=== PATIENT | male | born 1965 | race Caucasian/White ===

== ENCOUNTER 2019-01-03 14:27 | Emergency (ER) | payer MEDICAID ==
[~2019-01-03] VITALS: Ht 170.2 cm; Wt 68.9 kg
[2019-01-03 14:43] VITALS: Ht 170.2 cm; Wt 68.9 kg
[2019-01-03] MEDS ORDERED: KETOROLAC 30 MG INJ IM STA (16:24)
[2019-01-03] MEDS ORDERED: LIDOCAINE/MYLANTA 40 ML BTL PO STA (16:24)
[2019-01-03] MEDS ORDERED: FAMO-96 PO (16:26)
[2019-01-03] MEDS ORDERED: NAPR-985 PO (16:26)
[2019-01-03] MEDS ORDERED: DEXAMETHASONE 10 MG/ML 1 ML INJ IM ONE (16:30)
--- NOTE | 2019-01-03 16:36 | ERD ---
ER Documentation Chief Complaint Chief Complaint generalized body pains, abdominal gas X 1 day HPI 53-year-old male with no reported past medical history, history of diverticulitis with reported surgery 6 years ago who presents with complaint of back pain as well as abdominal discomfort. Patient describes mid upper back pain radiation of pain to both upper extremities. Pain made worse with movement of torso. States symptoms began abruptly after he woke up this morning. Denies any history of recent fall or injury but states that he does have a job that is rather strenuous. Denies upper or lower extremity weakness or numbness. No reported saddle anesthesia or bowel or urinary incontinence. Regard says of the abdominal discomfort he describes a burning type pain in the upper epigastric chest area. Made worse following meals. Has had intermittent nausea but no reports of vomiting or diarrhea. When asked specifically if he is having abdom inal pain he denies abdominal pain chest reporting abdominal discomfort after meals. He otherwise denies fevers is moving his bowels and passing gas without issue. ROS All systems reviewed and are negative except as per history of present illness. Medications Home Meds Active Scripts Famotidine* (Pepcid*) 20 Mg Tablet, 20 MG PO BID for 30 Days, TAB Prov:EILEEN DALTON-C 01/03/19 Naproxen* (Naprosyn*) 500 Mg Tablet, 500 MG PO BID PRN for PAIN AND/OR INFLAMMATION, #30 TAB Prov:EILEEN DALTON PA-C 01/03/19 Allergies Allergies: Coded Allergies: No Known Allergy (Unverified , 09/25/11) PMhx/Soc History of Surgery: No Anesthesia Reaction: No Hx Neurological Disorder: No Hx Respiratory Disorders: No Hx Cardiac Disorders: Yes (HTN) Hx Psychiatric Problems: No Hx Alcohol Use: No Hx Substance Use: No Hx Tobacco Use: No Smoking Status: Never smoker FmHx Family History: No diabetes, No coronary disease, No other Physical Exam Vitals Vital Signs Date Temp Pulse Resp B/P (MAP) Pulse Ox O2 O2 Flow FiO2 Time Delivery Rate 01/03/19 99.9 88 18 129/79 97 14:43 (96) Physical Exam I have reviewed the triage vital signs. Const: Well nourished, well developed, appears stated age Eyes: PERRL, no conjunctival injection HENT: NCAT, Neck supple without meningismus CV: RRR, Warm, well-perfused extremities RESP: CTAB, Unlabored respiratory effort GI: soft, non-tender, non-distended, no masses MSK: No gross deformities appreciated. no supra/para spinal tenderness, full ROM, 5/5 after upper and lower extremities, SI LT throughout, negative straight leg test Skin: Warm, dry. No rashes Neuro: grossly non focal Psych: Appropriate mood and affect. Results 24 hrs Current Medications Medications Dose Sig/Julee Start Time Status Last (Trade) Ordered Route PRN Stop Time Admin Dose Reason Admin 40 ml ONCE STAT 01/03/19 DC Miscellaneous PO 16:24 Medication 01/03/19 16:25 (Gi Cocktail (2)) Ketorolac 30 mg ONCE STAT 01/03/19 DC Tromethamine IM 16:24 (Toradol) 01/03/19 16:25 10 mg ONCE ONCE 01/03/19 Dexamethasone IM 16:30 (Decadron) 01/03/19 16:31 Procedures/MDM 53-year-old male who presents with complaint of back pain as well as GERD type abdominal discomfort. He is hemodynamically stable with no concerning neurovascular symptoms which warrant further emergent work-up. No red flag symptoms reported. Completely reassuring physical examination. Low suspicion for acute cord compression or cauda equina at this time, given presentation and symptoms, including epidural abscess or hematoma. Patient has no history of malignancy, active or distant history. Patient has no unexplained weight loss. No recent fevers, rigors, malaise, or recent infection. No history of IVDU or skin-popping. Patient does not have any history concerning for saddle anesthe ninoska/perianal sensory loss or complaining of decreased rectal tone. Patient does not have urinary retention or inability to control urine from overflow. Patient has no tenderness overlying spinous process. Patient has no focal weakness on examination. Has complained of the abdominal pain may be secondary to GERD. He has no concerning symptoms which give me concern for acute abdominal pathology warranting further emergent work-up. ED course: Toradol, Decadron Discharge with appropriate pain medications, famotidine Given exam and history, low suspicion for cord compression, cauda equina, epidural abscess/hematoma. Distally neurovascularly intact. Query likely musculoskeletal component. Discussed pain control,and follow up with PMD. Cautious return precautions discussed w/ full understanding DISPOSITION PLAN: We discussed follow up with the patient's primary care doctor within 24 to 48 hours. Patient counseled regarding my diagnostic impression and care plan. Prior to discharge all questions answered. Pt agrees with treatment plan and understands strict return precautions. Precautionary instructions provided including instructions to return to the ER if not improving or for any worsening or changing symptoms or concerns. Disclaimer: Inadvertent spelling and grammatical errors are likely due to EHR/dictation software use and do not reflect on the overall quality of patient care. Also, please note that the electronic time recorded on this note does not necessarily reflect the actual time of the patient encounter. Departure Diagnosis: Primary Impression: GERD (gastroesophageal reflux disease) Additional Impression: Back pain Condition: Stable Patient Instructions: Gastroesophageal Reflux Disease (GERD), Back Pain (Acute Or Chronic) Referrals: [facility] YOU HAVE RECEIVED A MEDICAL SCREENING EXAM AND THE RESULTS INDICATE THAT YOU DO NOT HAVE A CONDITION THAT REQUIRES URGENT TREATMENT IN THE EMERGENCY DEPARTMENT. FURTHER EVALUATION AND TREATMENT OF YOUR CONDITION CAN WAIT UNTIL YOU ARE SEEN IN YOUR DOCTORS OFFICE WITHIN THE NEXT 1-2 DAYS. IT IS YOUR RESPONSIBILITY TO MAKE AN APPOINTMENT FOR FOLOW-UP CARE. IF YOU HAVE A PRIMARY DOCTOR --you should call your primary doctor and schedule an appointment IF YOU DO NOT HAVE A PRIMARY DOCTOR YOU CAN CALL OUR PHYSICIAN REFERRAL HOTLINE AT IF YOU CAN NOT AFFORD TO SEE A PHYSICIAN YOU CAN CHOSE FROM THE FOLLOWING [facility] [address] [facility]. [facility] [address] [facility] [facility] [address] [facility] [facility] [address] [facility]. [facility] [address] [facility]. [facility]. [address] Additional Instructions: Call your primary care doctor TOMORROW for an appointment during the next 2-3 days.See the doctor sooner or return here if your condition worsens before your appointment time. EILEEN DALTON PA-C Jan 03, 2019 16:36
[2019-01-03] MEDS ORDERED: IBUP-1542 PO (16:38)
[2019-01-03 16:43] VITALS: BP 118/79; PULSE 84; RESP 19
== END 2019-01-03 16:44 | disposition home or self-care (01) ==
LOC: FTE 14:27
DX: M54.6 Pain in thoracic spine (principal); K21.9 Gastro-esophageal reflux disease without esophagitis; I10 Essential (primary) hypertension
CPT/HCPCS: 96372; J1100; J1885; Z7502; Z7610